=== PATIENT | female | born 1980 | race Caucasian/White ===

== ENCOUNTER 2019-01-07 09:27 | Emergency (ER) | payer OTHER, BC ==
[2019-01-07 09:44] VITALS: BP 98/58
--- NOTE | 2019-01-07 11:50 | UC ---
Skin Complaint HPI - HPI Summary HPI Summary: PATIENT HAS BEEN ON KEFLEX FOR STAPH UTI FOR THE PAST 2 DAYS. STATES SHE HAS HAD AN AREA OF TENDERNESS AND REDNESS IN HER LEFT ARMPIT THAT HAS GOTTEN WORSE OVER THE PAST FEW DAYS. STATES SINCE STARTING THE KEFLEX IT IS ACTUALLY FEELING BETTER. SHE DOES HAVE SOME OVERALL FATIGUE AND HEADACHE. TEMPERATURE HAS BEEN SLIGHTLY ELEVATED IN THE 99 REGION. NO NAUSEA. IS CURRENTLY 17 WEEKS . - History of Current Complaint Chief Complaint: [facility] Time Seen by Provider: 01/07/19 11:13 Stated Complaint: SWOLLEN ARM PITS/SHOULDER PAIN Hx Obtained From: Patient Hx Last Menstrual Period: 17 wks preg Onset/Duration: Gradual Onset, Lasting Days, Still Present Timing: Constant Onset Severity: Moderate Current Severity: Moderate Pain Intensity: 7 Pain Scale Used: 0-10 Numeric Location: Discrete - LEFT AXILLA Character: Pain, Redness Aggravating Factor(s): Touch Alleviating Factor(s): Other - KEFLEX Associated Signs & Symptoms: Positive: Rash, Tenderness - Allergy/Home Medications Allergies/Adverse Reactions: Allergies Allergy/AdvReac Type Severity Reaction Status Date / Time No Known Allergies Allergy Verified 01/07/19 09:45 Home Medications: Home Medications Cephalexin CAP* [Keflex 500 CAP*] 1 mg PO DAILY 01/07/19 [History Confirmed 03/20] PMH/Surg Hx/FS Hx/Imm Hx Previously Healthy: Yes - Surgical History Surgical History: None - Family History Known Family History: Positive: Non-Contributory - Social History Alcohol Use: None Substance Use Type: None Smoking Status (MU): Never Smoked Tobacco Review of Systems All Other Systems Reviewed And Are Negative: Yes Constitutional: Positive: Fatigue Skin: Positive: Rash ENT: Positive: Negative Respiratory: Positive: Negative Cardiovascular: Positive: Negative Gastrointestinal: Positive: Negative Musculoskeletal: Positive: Myalgia Neurological: Positive: Headache Physical Exam Triage Information Reviewed: Yes Appearance: Well-Appearing, No Pain Distress, Well-Nourished Vital Signs: Initial Vital Signs Temp 98.7 F 01/07/19 09:42 Pulse 82 01/07/19 09:42 Resp 16 01/07/19 09:42 BP 98/58 01/07/19 09:42 Pulse Ox 100 01/07/19 09:42 Vital Signs Reviewed: Yes Eyes: Positive: Conjunctiva Clear ENT: Positive: Hearing grossly normal Neck: Positive: Supple, Nontender Respiratory: Positive: No respiratory distress, No accessory muscle use Cardiovascular: Positive: Pulses Normal Abdomen Description: Positive: Soft Musculoskeletal: Positive: No Edema Neurological: Positive: Alert Psychological: Positive: Age Appropriate Behavior Skin: Positive: Rashes - 26CM X 12CM AREA OF ERYTHEMA AND TENDERNESS RIGHT AXILLA EXTENDING TO POSTERIOR SHOULDER WITH CENTRAL CLEARING Course/Dx - Course Course Of Treatment: LESION IN LEFT AXILLA IS SLIGHTLY IRREGULAR SHAPED BUT THERE IS A SUGGESTION OF A CENTRAL CLEARING. IT IS WARM AND TENDER AND FEELING BETTER AFTER 2 DAYS OF KEFLEX. PT WILL CONTINUE HER KEFLEX PRESCRIBED FOR PRESUMPTIVE CELLULITIS. SHE WILL FOLLOW-UP IF SHE IS NOT CONTINUING TO IMPROVE OVER THE NEXT FEW DAYS. GIVEN ITS APPEARANCE, THE FACT THAT [place] AND HAS BEEN EXPERIENCING BODY ACHES, HEADACHE AND ELEVATED TEMPERATURE THERE IS CERTAINLY SOME CONCERN FOR LYME DISEASE ALTHOUGH IT IS NOT CLASSIC IN APPEARANCE. WILL CHECK CBC AND LYME SEROLOGY TODAY. - Diagnoses Provider Diagnosis: Cellulitis of left axilla Discharge - Sign-Out/Discharge Documenting (check all that apply): Patient Departure All imaging exams completed and their final reports reviewed: No Studies - Discharge Plan Condition: Stable Disposition: HOME Patient Education Materials: Cellulitis (ED) Referrals: [facility] [Outside] - If Needed Sakina Johansen CNM [Primary Care Provider] - Additional Instructions: YOUR RASH COULD BE DUE TO CELLULITIS. YOU HAVE IMPROVED SINCE STARTING THE KEFLEX. I RECOMMEND YOU CONTINUE THIS MEDICATION TO COMPLETE THE COURSE. IF YOU ARE NOT NOTICING CONTINUED IMPROVEMENT OVER THE NEXT FEW DAYS FOLLOW-UP FOR REEVALUATION. GIVEN ITS APPEARANCE WILL ALSO CHECK LYME SEROLOGY AND CBC TODAY. CALL THE NUMBER BELOW FOR ASSISTANCE IN ESTABLISHING WITH A PCP An additional resource available to assist in finding the appropriate physician for your health care needs is [facility] ([facility]). You may contact them by calling [phone]. - Billing Disposition and Condition Condition: STABLE Disposition: Home
[2019-01-07 17:00] LABS: ABS Eosinophils 0.1 10^3/ul (0-0.6); ABS Lymphocytes 1.5 10^3/ul (1.0-4.8); ABS Monocytes 0.7 10^3/ul (0-0.8); ABS Neutrophils 6.3 10^3/ul (1.5-7.7); Eosinophil % 1.5 %; Hematocrit 33 % (35-47); Hemoglobin 11.5 g/dL (12.0-16.0); Lymphocyte % 16.8 %; Mean Corpuscular HGB Conc 35 g/dL (31-36); Mean Corpuscular Hemoglobin 33 pg (27-31); Mean Corpuscular Volume 93 fL (80-97); Mean Platelet Volume 10.1 fL (7.4-10.4); Nucleated Red Blood Cells % 0.1; Platelet Count 166 10^3/uL (150-450); Red Blood Count 3.55 10^6 /uL (3.70-4.87); Red Cell Distribution Width 13 % (10-15); White Blood Count 8.7 10^3/uL (3.5-10.8)
--- NOTE | 2019-01-08 07:18 | UC ---
- Progress Note Progress Note: please notify patient that she is mildly anemic Course/Dx - Diagnoses Provider Diagnoses: Cellulitis of left axilla Discharge - Sign-Out/Discharge Documenting (check all that apply): Post-Discharge Follow Up All imaging exams completed and their final reports reviewed: No Studies - Discharge Plan Condition: Stable Disposition: HOME Patient Education Materials: Cellulitis (ED) Referrals: [facility] [Outside] - If Needed Sakina Johansen CNM [Primary Care Provider] - Additional Instructions: YOUR RASH COULD BE DUE TO CELLULITIS. YOU HAVE IMPROVED SINCE STARTING THE KEFLEX. I RECOMMEND YOU CONTINUE THIS MEDICATION TO COMPLETE THE COURSE. IF YOU ARE NOT NOTICING CONTINUED IMPROVEMENT OVER THE NEXT FEW DAYS FOLLOW-UP FOR REEVALUATION. GIVEN ITS APPEARANCE WILL ALSO CHECK LYME SEROLOGY AND CBC TODAY. CALL THE NUMBER BELOW FOR ASSISTANCE IN ESTABLISHING WITH A PCP An additional resource available to assist in finding the appropriate physician for your health care needs is the [facility] ([facility]). You may contact them by calling [phone]. - Billing Disposition and Condition Condition: STABLE Disposition: Home
== END 2019-01-07 12:14 | disposition home or self-care (01) ==
LOC: UCEAST 09:27
DX: L03.112 Cellulitis of left axilla (principal)
CPT/HCPCS: 36415; 85025; 86618; 99211; G0463

== ENCOUNTER 2019-06-23 06:46 | Inpatient (IN) | payer BC, OTHER ==
[2019-06-23] MEDS ORDERED: Lactated Ringers 1000 ML Bag* 1,000 ML IV ONE (07:36)
[2019-06-23] MEDS ORDERED: Buffered Lidocaine 1% SYRIN* 1 ML/SYRINGE INTRADERM ONE (07:36)
--- NOTE | 2019-06-23 07:44 | HP ---
General Information - Reason for Visit Contractions - General Information Maternal Age: 38 Grav: 7 Para: 1 SAB: 5 IEA: 0 Estimated Due Date: 06/18/19 Determined By: Early Ultrasound Maternal Blood Type and Rh: O Positive - Results this Serology/RPR Result: Non-Reactive Rubella Result: Immune HBsAg Result: Negative HIV Result: Negative GBS Culture Result: Negative Past Medical History Delivery History: Hx Uncomplicated Vaginal Delivery Delivery History Comment: SVB 10/2015 pushed 5 hours, 3rd degree laceration Pertinent Past Medical History: See Records Past Medical History Comment: Depression, anxiety Pertinent Past Surgical History: None Pertinent Family History: Non-Contributory - Antepartal Records Antepartal Records: Reviewed, Complicated by: - AMA, MRSA hx Review of Systems Constitutional: Uncomfortable CV Complaint: No Respiratory: Shortness of Breath: No Gastrointestinal: Normal Bowel Movement, Vomiting Genitourinary: No Dysuria, No Bleeding, No Leaking Fluid Musculoskeletal: Back Pain, Contractions Neurological: No Headache, No Visual Changes Movement: Normal Exam Allergies/Adverse Reactions: Allergies No Known Allergies Allergy (Verified 01/07/19 09:45) VSS, afebrile - Measurements Height: 5 ft 6 in Weight: 203 lb Weight in lbs: 203.918251 Body Mass Index (BMI): 32.8 Pre- Weight: 160 lb Weight Gained This : 43 lbs and 0 ozs - Exam Breast: Breast Exam Deferred CVA: No CVA Tenderness Extremities: No Edema Heart: Normal Rhythm/Heart Sounds HEENT: No Significant Findings Lungs: Clear Bilaterally Rectal: Rectal Exam Deferred Reflexes: - - DTR not elicited, no clonus Thyroid: - - WNL @ entry to care - Abdominal Exam Abdomen Exam: Non-Tender, Fundal Height Consistent with Dates - Ultrasound/Biophysical Profile Ultrasound Status: Not Done Targeted Exam Findings Estimated Weight: 8lb Cervical Exam: 8cm Effacement: 100% Station: +1 Presenting Part: Vertex Membrane Status: Intact Bleeding/Discharge: None EFM Findings - External Monitor Findings Baseline Heart Rate: 145 External Monitor Findings: Accelerations Present, No Pattern of Variable or Late Decelerations, Variability Moderate Contractions: Regular, Strong, 45-90 Seconds Contraction Frequency: q 3-4 min Assessment/Plan - Assessment IUP @ 40+5 weeks gestation in active labor. Intact bag of pearl. No evidence acidemia. - Obstetrical Risk Factors Risk Factors Comment: MRSA hx - Plan Plan: Admit - Anticipate Vaginal Delivery Plan Comment: Admit, patient would like to try tub or may desire nitrous. Anticipate SVB - Date/Time of Admission Date of Admission: 06/23/19 Time of Admission: 07:40
[2019-06-23] MEDS ORDERED: Lactated Ringers 1000 ML Bag* 1,000 ML IV SCH (08:00)
[2019-06-23] MEDS ORDERED: Dibucaine 1% 28.35 GM TUBE PR PRN (10:05)
[2019-06-23] MEDS ORDERED: Glycerin ADULT SUPP PR PRN (10:05)
[2019-06-23] MEDS ORDERED: Acetaminophen TAB* 325 MG PO PRN (10:05)
[2019-06-23] MEDS ORDERED: Witch Hazel PAD* JAR TOPICAL PRN (10:05)
--- NOTE | 2019-06-23 10:10 | PROCNOTE ---
[facility] OB: Delivery Note - Delivery A Date of : 06/23/19 Time of : 08:55 [place] Sex: Female - "Indra" Score 1 Minute: 8 Score 5 Minutes: 8 Gestational Age in Weeks and Days at Delivery: 40 Weeks and 5 Days Delivery Method: Spontaneous Vaginal Labor: Spontaneous Did Patient attempt ?: N/A, No Previous Amniotic Fluid: Clear Estimated Blood Loss: 350 Anesthesia/Analgesia: None Delivered By: Gauri Mosher - Nursery Level of Nursery: Regular/Bedside - Perineum Perineal Injury: 2nd Degree - Repaired under local infiltration 1% lidocaine in the usual fashion with 3-0 Vicryl. Anatomy restored and good hemostasis achieved. - Events Delivery Events of Note: None Apply - Additional Delivery Notes Additional Delivery Notes: Pt admitted in labor with expected progression to complete. Length of labor 5 hours, 33 min. Pushed x 15 min. liveborn female with mother in hands-knees position. Slow, controlled delivery of head. OA to BHAVANI. Shoulders followed easily with maternal push. Nuchal cord x 1 reduced after delivery. Infant vigorous with spontaneous cry. HR>110bpm. Mother to right lateral and passed to her abdomen. Cord clamped x 2 and cut at 1 minute of life. Cord blood collection done per the preference of the parents. Spontaneous delivery intact placenta. Membranes complete. Fundus firm to massage with minimal bleeding noted. Repair of second degree midline laceration as above. EBL 300mL. At time of note mother and in stable condition. Breast feeding initiated.
[2019-06-23] MEDS ORDERED: Lidocaine 1% INJ* 10 MG/ML 30 ML SDV ONE (10:23)
[2019-06-23] MEDS: Docusate CAP* 100 MG PO SCH ×2 (12:51→19:51)
[2019-06-23] MEDS: Ibuprofen TAB* 600 MG PO SCH ×2 (12:51→19:51)
[2019-06-23 22:03] LABS: Urine Benzodiazepine Screen None Detected (None Detect); Urine Opiates Screen None Detected (None Detect)
[2019-06-24 00:21] VITALS: BP 105/47
[2019-06-24] MEDS: Ibuprofen TAB* 600 MG PO SCH (03:44)
[2019-06-24 05:43] LABS: ABS Basophils 0.1 10^3/ul (0-0.2); ABS Eosinophils 0.1 10^3/ul (0-0.6); ABS Lymphocytes 2.5 10^3/ul (1.0-4.8); ABS Neutrophils 10.4 10^3/ul (1.5-7.7); Eosinophil % 0.8 %; Hematocrit 35 % (35-47); Hemoglobin 11.9 g/dL (12.0-16.0); Lymphocyte % 17.6 %; Mean Corpuscular HGB Conc 34 g/dL (31-36); Mean Corpuscular Hemoglobin 32 pg (27-31); Mean Corpuscular Volume 94 fL (80-97); Mean Platelet Volume 10.4 fL (7.4-10.4); Platelet Count 152 10^3/uL (150-450); Red Cell Distribution Width 14 % (10-15)
[2019-06-24] MEDS: Docusate CAP* 100 MG PO SCH (07:49)
[2019-06-24] MEDS ORDERED: Ferrous Gluconate TAB* 324 MG TAB PO SCH (09:00)
== END 2019-06-24 16:05 | disposition home or self-care (01) | DRG 560 ==
LOC: MCHOBOUT 06:46 → MCHOB 07:39
PROVIDERS: ADMIT Midwife; ATTEND Midwife
PROC: 10E0XZZ Delivery of Products of Conception, External Approach (ICD-10-PCS; principal; 2019-06-23)
PROC: 4A1HXCZ Monitoring of Products of Conception, Cardiac Rate, External Approach (ICD-10-PCS; 2019-06-23)
PROC: 0KQM0ZZ Repair Perineum Muscle, Open Approach (ICD-10-PCS; 2019-06-23)
DX: O48.0 Post-term pregnancy (principal); Z37.0 Single live birth; O69.81X0 Labor and delivery complicated by cord around neck, without compression, not applicable or unspecified; O70.1 Second degree perineal laceration during delivery; Z3A.40 40 weeks gestation of pregnancy; Z86.14 Personal history of Methicillin resistant Staphylococcus aureus infection
CPT/HCPCS: 36415; 80307; 85025; 87641; A9270-GY